=== PATIENT | female | born 1990 ===

== ENCOUNTER 2017-08-30 23:20 | Emergency (ER) | payer SELFPAY ==
[~2017-08-30] VITALS: Ht 170.2 cm; Wt 49.4 kg
[~2017-08-30 23:20] MED LIST: ADDERAL20 MG ORAL
[2017-08-30 23:30] VITALS: BP 110/79
[2017-08-30 23:35] VITALS: BP 113/73
[2017-08-30] MEDS ORDERED: LORazepam Inj 2mg/ml 1ml IV ONE (23:45)
[2017-08-31] MEDS ORDERED: Ketorolac 30mg Inj IV ONE (00:30)
--- NOTE | 2017-08-31 01:05 | Emergency Room Report ---
History of Present Illness General Chief Complaint: Pain Source: Patient Present Illness HPI Is a 26-year-old female with no past medical history. She presents with chief complaint of chest pain. Onset was just prior to arrival. She said she was trying to go to sleep when the pain came on all of a sudden. She said her heart hurts and also her lungs hurt. She described the pain is 10 out of 10. [place] like that she can't catch her breath and exhale. Also complaining of numbness to her whole body. [place] dizzy. Said that she smoked some marijuana around 8 8:30 PM tonight. Never had this problem before. No history of anxiety. Not suicidal or homicidal. Allergies: Coded Allergies: PENICILLINS (Verified Allergy, Unknown, 08/30/17) Patient History Past Medical History: see triage record, old chart reviewed Past Surgical History: none Pertinent Family History: none Social History: Denies: smoking Last Menstrual Period: 08/13/17 Now: No Immunizations: other Reviewed Nursing Documentation: PMH: Agreed; PSxH: Agreed Nursing Documentation-PMH History Of Psychiatric Problem: Yes - ADD Review of Systems Eye: Denies: eye pain, blurred vision ENT: Denies: ear pain, nose congestion, throat swelling Respiratory: Reports: shortness of breath; Denies: cough Cardiovascular: Reports: chest pain; Denies: palpitations Gastrointestinal: Denies: abdominal pain, diarrhea, nausea, vomiting Musculoskeletal: Denies: back pain, joint pain Skin: Denies: rash Neurological: Denies: headache, numbness Endocrine: Denies: increased thirst, increased urine Hematologic/Lymphatic: Denies: easy bruising All Other Systems: negative except mentioned in HPI Physical Exam Vital Signs Date Time Temp Pulse Resp B/P (MAP) Pulse Ox O2 Delivery O2 Flow Rate FiO2 08/30/17 23:14 90 14 116/73 100 Room Air 08/30/17 23:30 97.8 97.8 vitals normal Sp02 EP Interpretation: reviewed, normal General Appearance: well appearing, no apparent distress, alert Head: normocephalic, atraumatic Eyes: bilateral eye PERRL, bilateral eye EOMI ENT: hearing grossly normal, normal pharynx Neck: full range of motion, supple, no meningismus Respiratory: chest non-tender, lungs clear, normal breath sounds Cardiovascular #1: regular rate, rhythm, no murmur Gastrointestinal: normal bowel sounds, non tender, no mass, no organomegaly, no bruit, non-distended Musculoskeletal: back normal, gait/station normal, normal range of motion Psychiatric: anxious Skin: warm/dry Medical Decision Making Diagnostic Impression: Primary Impression: Atypical chest pain ER Course Patient resents with atypical chest pain. Most likely anxiety related. No evidence of ACS, PE, dissection, pneumothorax name a few. Patient felt better now. We will discharge home. EKG Diagnostic Results Rate: normal Rhythm: NSR ST Segments: no acute changes Rhythm Strip Diag. Results Rhythm Strip Time: 01:04 EP Interpretation: yes Rate: 93 Rhythm: NSR, no PVC's, no ectopy Chest X-Ray Diagnostic Results Chest X-Ray Diagnostic Results : Chest X-Ray Ordered: Yes # of Views/Limited/Complete: 1 View Indication: Chest Pain EP Interpretation: Yes Interpretation: no consolidation, no effusion, no pneumothorax, no acute cardiopulmonary disease Impression: No acute disease Electronically Signed by: Ahsan Tadeo MD Last Vital Signs Date Time Temp Pulse Resp B/P (MAP) Pulse Ox O2 Delivery O2 Flow Rate FiO2 08/31/17 00:43 97.8 08/30/17 23:35 111 19 113/73 100 Room Air Status: improved Disposition: HOME, SELF-CARE Condition: Stable Scripts Ibuprofen* (MOTRIN*) 600 Mg Tablet 600 MG ORAL THREE TIMES A DAY, #30 TAB 0 Refills Prov: AHSAN TADEO M.D. 08/31/17 Referrals: NOT CHOSEN [facility]/,REFERRING (PCP) Patient Instructions: PAIN, Uncertain Cause (Acute) Additional Instructions: Follow-up with your DrMaryan in 7 days. Return if symptom worsen. AHSAN TADEO M.D. Aug 31, 2017 01:05
[2017-08-31 01:15] VITALS: BP 100/69
[2017-08-31] MEDS ORDERED: IBUPROFEN600 MG ORAL (01:32)
[2017-08-31 01:47] VITALS: BP 100/69
--- NOTE | 2017-08-31 10:37 | Diagnostic Imaging Report ---
Indication: Chest pain Technique: One view of the chest Comparison: none Findings: Lungs and pleural spaces are clear. Heart size is normal Impression: No acute process
--- NOTE | 2017-08-31 21:18 | Cardiology Report ---
APPROVED REPORT EKG Measurement Heart [id number] Normal sinus rhythm with sinus arrhythmia Possible Left atrial enlargement Borderline ECG
== END 2017-08-31 01:47 | disposition home or self-care (01) ==
LOC: EMR 23:37
DX: R07.89 Other chest pain (principal); Z88.0 Allergy status to penicillin
CPT/HCPCS: 36415; 71045; 82962; 85379; 93005; 96374; 96375; 99283; J1885